=== PATIENT | male | born 1955 | race Caucasian/White ===

== ENCOUNTER 2017-05-12 14:16 | Emergency (ER) | payer OTHER ==
[~2017-05-12] VITALS: Ht 182.9 cm; Wt 100.0 kg
[2017-05-12 14:25] VITALS: BP 158/92; PULSE 84; RESP 18; TEMP 98.3; O2SAT 97
[2017-05-12] MEDS ORDERED: LOSA50TA PO (14:25)
[2017-05-12] MEDS ORDERED: ASPI81TA23 PO (14:25)
--- NOTE | 2017-05-12 15:21 | PD ---
HPI . Laceration Chief Complaint: Laceration/Skin Injury Time Seen by Provider: 14:46 Travel History International Travel<30 days: No Contact w/Intl Traveler<30days: No Traveled to known affect area: No History of Present Illness HPI 61-year-old male patient presents emergency department for evaluation of a laceration he sustained to the right lateral aspect of his forehead this afternoon when ice-skating. Patient fell and hit his head on the ice lacerating his head. Patient denies any loss of consciousness during this event. Patient is not currently taking any blood thinners. Patient denying headache or any other injuries during this fall. PFSH Past Medical History Hx Anticoagulant Therapy: Yes (asa) Cardiovascular Problems: Yes Diminished Hearing: No Hypertension: Yes Immunizations Current: Yes Tetanus Vaccination: < 5 Years Influenza Vaccination: Yes Social History Alcohol Use: Yes (rare) Tobacco Use: No Substance Use: No Allergies-Medications (Allergen,Severity, Reaction): Coded Allergies: No Known Allergies (Unverified , 05/12/17) Reported Meds & Prescriptions Reported Meds & Active Scripts Active Reported Aspirin EC (Aspirin) 81 Mg Tabdr 81 Mg PO DAILY Losartan (Losartan Potassium) 50 Mg Tab 50 Mg PO DAILY Review of Systems Except as stated in HPI: all other systems reviewed are Neg Physical Exam Narrative GENERAL: Well-nourished, well-developed 61-year-old male patient in no acute distress. Nontoxic appearing. SKIN: 5cm laceration to the right lateral aspect of the forehead. HEAD: Normocephalic. Laceration to the right lateral aspect of the forehead as noted above. NEUROLOGICAL: Awake and alert. Cranial nerves II through XII intact. Motor and sensory grossly within normal limits. Five out of 5 muscle strength in all muscle groups. Normal speech. EYES: Demonstrate PERRLA bilaterally. No scleral icterus. No injection or drainage. NECK: Supple, trachea midline. No JVD or lymphadenopathy. CARDIOVASCULAR: Regular rate and rhythm without murmurs, gallops, or rubs. RESPIRATORY: Breath sounds equal bilaterally. No accessory muscle use. GASTROINTESTINAL: Abdomen soft, non-tender, nondistended. MUSCULOSKELETAL: No cyanosis, or edema. BACK: No midline spinal tenderness. No obvious deformity, cyanosis, erythema, ecchymosis. No CVA tenderness. Data Data Last Documented VS Vital Signs Date Time Temp Pulse Resp B/P (MAP) Pulse Ox O2 Delivery O2 Flow Rate FiO2 05/12/17 14:25 98.3 84 18 158/92 (114) 97 Orders Orders Ed Discharge Order (05/12/17 15:21) [facility] Medical Decision Making Medical Screen Exam Complete: Yes Emergency Medical Condition: Yes Differential Diagnosis Differential diagnoses include but not limited to laceration, concussion, cellulitis, head injury Narrative Course 61-year-old male patient presents emergency department for evaluation that he sustained to the right lateral aspect of his forehead today when he fell during ice skating. Patient has no neurological deficit. Patient denies loss of consciousness. No nausea or vomiting. Patient is up-to-date on his tetanus vaccine. Patient was evaluated by myself and Dr. Milian and he did not meet criteria for head CT. Patient was asked if he would like a head CT and he said no that he felt like it wasn't necessary. Patient was repaired. Please see my procedural narrative. Patient was discharged home with instructions to keep the wound clean and dry, get the sutures removed in 5 days, return to the emergency Department with any worsening condition but otherwise follow-up primary care. Procedures Procedure Narrative LACERATION LOCATION: Right lateral aspect of forehead LENGTH: 5 cm NUMBER OF STITCHES/SCOUT: 5 simple interrupted sutures using 4. 0 Prolene REPAIR: The area of the laceration was prepped with Betadine and sterilely draped. The laceration was infiltrated with 1% lidocaine. The wound was copiously irrigated and explored without evidence of foreign body, tendon injury or neurovascular injury. The wound was closed using 5 simple interrupted sutures using 4. 0 Prolene. This was a single layer repair. A sterile dressing was applied. The patient was advised to keep the dressing clean and dry. Patient tolerated the procedure well.ir Diagnosis Primary Impression: Laceration of face Qualified Codes: S01.81XA - Laceration without foreign body of other part of head, initial encounter Referrals: Primary Care Physician Patient Instructions: Facial Laceration (ED), General Instructions Additional Instructions: Please return to emergency department if your symptoms return or worsen. Follow up with your primary care provider. Keep wound clean and dry. Get sutures removed in 5 days. Disposition: 01 DISCHARGE HOME Condition: Stable AuroraNinoska Delores COLON May 12, 2017 15:21
--- NOTE | 2017-05-12 15:29 | PD ---
Data Data Last Documented VS Vital Signs Date Time Temp Pulse Resp B/P (MAP) Pulse Ox O2 Delivery O2 Flow Rate FiO2 05/12/17 14:25 98.3 84 18 158/92 (114) 97 Orders Orders Ed Discharge Order (05/12/17 15:21) MDM Supervised Visit with JESUS ALBERTO: Yes Narrative Course I, Dr. Milian, have reviewed the advance practice practitioner's documentation and am in agreement, met with the patient face to face, made the diagnosis, and the medical decision making was done by me. *My assessment and Findings: Patient seen and examined by me in addition to Ninoska Hammond PA-C. Patient had minimal fall while at a skating rink. C-spine injury excluded by nexus, head injury excluded by [place] CT head rules. He appears well and in no distress. Laceration to be removed. In the patient be discharged home. Diagnosis Primary Impression: Laceration of face Qualified Codes: S01.81XA - Laceration without foreign body of other part of head, initial encounter Referrals: Primary Care Physician Patient Instructions: General Instructions, Care For Your Stitches (ED), Facial Laceration (ED) Departure Forms: Tests/Procedures Additional Instruction: Please return to emergency department if your symptoms return or worsen. Follow up with your primary care provider. Keep wound clean and dry. Get sutures removed in 5 days. Disposition: 01 DISCHARGE HOME Condition: Stable Panfilo Milian MD May 12, 2017 15:29
== END 2017-05-12 15:33 | disposition home or self-care (01) ==
LOC: PHEFT 14:16
DX: S01.81XA Laceration without foreign body of other part of head, initial encounter (principal); V00.211A Fall from ice-skates, initial encounter; Y93.21 Activity, ice skating
CPT/HCPCS: 12013; 12014